=== PATIENT | female | born 1950 | race Caucasian/White ===

== ENCOUNTER 2017-04-09 16:11 | Emergency (ER) | payer BC ==
--- NOTE | 2017-04-09 17:53 | UC ---
Hand/Wrist HPI - HPI Summary HPI Summary: Foosh left hand 2 days ago---has pain in radial side of wrist---swelling is resolved bruising remains - History Of Current Complaint Chief Complaint: UCUpperExtremity Stated Complaint: LEFT HAND/WRIST PAIN S/P FALL THURSDAY Time Seen by Provider: 04/09/17 17:44 Hx Obtained From: Patient Hx Last Menstrual Period: n/a ?: No Mechanism Of Injury: Foosh Onset/Duration: Sudden Onset, Lasting Days - 2 Severity Initially: Moderate Severity Currently: Moderate Pain Intensity: 5 Pain Scale Used: 0-10 Numeric Character Of Pain: Aching Aggravating Factor(s): Movement Alleviating Factor(s): Nothing Associated Signs And Symptoms: Positive: Swelling - now resolved, Bruising Related History: Dominant Hand Right - Allergies/Home Medications Allergies/Adverse Reactions: Allergies Allergy/AdvReac Type Severity Reaction Status Date / Time Venlafaxine Allergy Unknown Rash Verified 04/09/17 17:40 Sulfa Antibiotics Allergy Rash And Verified 04/09/17 17:39 Itching Home Medications: Home Medications Aspirin Low Dose CHEW TAB* [Aspirin Low Dose TAB*] 81 mg PO DAILY 04/09/17 [ History Confirmed 04/09/17] Atorvastatin* [Lipitor*] 10 mg PO DAILY 04/09/17 [History Confirmed 04/09/17] Calcium 600 mg PO DAILY 04/09/17 [History Confirmed 04/09/17] Eye Health Vitamin 04/09/17 [History] Ibuprofen TAB* [Motrin TAB* 800 MG] 800 mg PO Q6H PRN 04/09/17 [History Confirmed 04/09/17] PMH/Surg Hx/FS Hx/Imm Hx Previously Healthy: No Endocrine History: Dyslipidemia Cardiovascular History: Hypertension - Surgical History Surgical History: Yes Surgery Procedure, Year, and Place: hysterectomy 1997, cataracts. RIGHT OVARY AND FALLOPIAN TUBE REMOVAL 2016 - Family History Known Family History: Positive: None - Social History Occupation: Retired Lives: Alone Alcohol Use: None Substance Use Type: None Smoking Status (MU): Former Smoker Review of Systems Constitutional: Negative Skin: Bruising - left hand Eyes: Negative ENT: Negative Respiratory: Negative Cardiovascular: Negative Gastrointestinal: Negative Genitourinary: Negative Motor: Negative Neurovascular: Negative Musculoskeletal: Arthralgia - left wrist Neurological: Negative Psychological: Negative Is Patient Immunocompromised?: No All Other Systems Reviewed And Are Negative: Yes Physical Exam Triage Information Reviewed: Yes Appearance: Well-Appearing, Well-Nourished, Pain Distress Vital Signs: Initial Vital Signs Temp 98.4 F 04/09/17 17:45 Pulse 76 04/09/17 17:45 Resp 18 04/09/17 17:45 BP 132/84 04/09/17 17:45 Pulse Ox 99 04/09/17 17:45 Vital Signs Reviewed: Yes Eye Exam: Normal Eyes: Positive: Conjunctiva Clear ENT Exam: Normal ENT: Positive: Normal ENT inspection, Hearing grossly normal. Negative: Nasal congestion, Trismus, Muffled voice, Hoarse voice Dental Exam: Normal Neck exam: Normal Neck: Positive: Supple, Nontender Respiratory Exam: Normal Respiratory: Positive: Chest non-tender, Normal breath sounds, No accessory muscle use Cardiovascular Exam: Normal Cardiovascular: Positive: RRR, Pulses Normal, Brisk Capillary Refill Musculoskeletal Exam: Other Musculoskeletal: Positive: No Edema, Strength Limited @ - left wrist, ROM Limited @ - left wrist Neurological Exam: Normal Neurological: Positive: Alert, Muscle Tone Normal Psychological Exam: Normal Skin Exam: Normal Diagnostics - Radiology No standard instances Xray Interpretation: No Acute Changes Radiology Interpretation Completed By: ED Physician, Radiologist Hand/Wrist Course/Dx - Course Course Of Treatment: cockup splint ice, ibuprofen rest follow with ortho prn - Differential Dx/Diagnosis Provider Diagnoses: left wrist sprain, contusion, Discharge - Discharge Plan Condition: Stable Disposition: HOME Patient Education Materials: Ibuprofen (By mouth), Contusion in Adults (ED), Hypertension (ED), RICE Therapy (ED), Wrist Sprain (ED) Referrals: Jose Haines MD [Medical Doctor] - 1 Week Vianca Maurer [Physician [facility] [place]] - 2 Weeks
[2017-04-09 19:24] VITALS: BP 145/78
--- NOTE | 2017-04-09 19:24 | RAD ---
INDICATION: LEFT wrist pain following injury 2 days ago. Fall. Soft tissue swelling and bruising. COMPARISON: No relevant prior exams available on the [facility] for comparison. TECHNIQUE: AP, lateral, and oblique views LEFT wrist. REPORT: Normal articular alignment. Negative for fracture. Preserved joint spaces. Mild nonfocal soft tissue swelling. IMPRESSION: Mild nonfocal soft tissue swelling. Negative for fracture.
== END 2017-04-09 19:46 | disposition home or self-care (01) ==
LOC: UCCORT 16:11
DX: S63.502A Unspecified sprain of left wrist, initial encounter (principal); S60.212A Contusion of left wrist, initial encounter; W19.XXXA Unspecified fall, initial encounter; Y93.9 Activity, unspecified; Y92.9 Unspecified place or not applicable; E78.5 Hyperlipidemia, unspecified; I10 Essential (primary) hypertension; Z90.710 Acquired absence of both cervix and uterus; Z98.49 Cataract extraction status, unspecified eye; Z88.2 Allergy status to sulfonamides; Z87.891 Personal history of nicotine dependence
CPT/HCPCS: 99203; G0463